=== PATIENT | female | born 1990 | race Caucasian/White ===

== ENCOUNTER 2017-12-28 07:04 | Day surgery (SDC) | payer OTHER, BC, SELFPAY ==
[2017-12-22 12:32] LABS: Hematocrit 37.3 % (37-47); Hemoglobin 12.2 g/dl (12.0-15.0); Mean Corp Hgb Conc 32.7 g/gl (32-36); Mean Corpuscular Hgb 28.4 pg (27.0-32.0); Mean Corpuscular Volume 86.7 fL (81-99); Mean Platelet Vol. 9.5 fl (6.2-12.0); Platelet Count 261 K/mm3 (150-450); RBC Distribution Width CV 13.1 % (11.6-14.6); RBC Distribution Width SD 41.7 fl (35.1-43.9); White Blood Count 5.1 K/mm3 (4.4-11.0)
[2017-12-22 12:37] LABS: International Normalized Ratio 1.1; Prothrombin Time (Protime)PT. 13.7 SECONDS (11.7-14.9)
[2017-12-22 12:38] LABS: Partial Thromboplast Time 31.5 Seconds (24.1-36.2)
[2017-12-22 12:39] LABS: Scan Indicated on CBC? Y/N NO
--- NOTE | 2017-12-28 | FALS_PTH ---
PATIENT: MATHEUS CAREY LOC: [facility] [place] U#:[id number] AGE/SX: 27/F ROOM: RE12/28/[address]: Dr. Bailey Hansen MD : 1990 BED: DIS: 12/28/2017 SPEC #: [id number] RECD: 12/28/17 12:23 STATUS: NEGAR KATHY #: [id number] ADONAY: 12/28/17 00:[address]: Bailey Mott DEPT: SURGICAL PATHOLOGY RECD BY: Rodney lFynn ENTERED: 12/28/17 12:23 SP TYPE: FALL TUBES OTHR DR: Dr. Chino Lo MD Tissues: Fallopian tube Procedures: Surgery Specimen Level II HEADER OPERATION: Laparoscopic salpingectomy, bilateral PRE-OP DIAGNOSIS: Sterilization request TISSUE SUBMITTED: Bilateral fallopian tubes, suture fiore right tube MICROSCOPIC DIAGNOSIS Right and left fallopian tubes, bilateral salpingectomies: Two complete segments of fallopian tubes with no pathologic change. AM:randell 12/29/17 MICROSCOPIC DESCRIPTION Slides are reviewed. GROSS DESCRIPTION Received is one container labeled with the patient's name and designated bilateral fallopian tubes, left tube with suture. The specimen consists of two fallopian tubes with an average length of 6 cm and has an average diameter of 0.5 cm. Both fallopian tubes have normal fimbriated ends. No mass lesions are identified. Machine Setter sections are submitted in two cassettes as follows: 1 ? right fallopian tube, 2 ? left fallopian tube. / AM:randell 12/28/17 TC:5 CPT: 54271 x2
[2017-12-28 07:24] LABS: Internal QC Validated? YES +Cl - CLEAR BKGD
[2017-12-28 07:25] LABS: Pregnancy, Urine Negative Negative
[2017-12-28 07:29] VITALS: BP 135/84; PULSE 103; RESP 16; TEMP 36.7; O2SAT 98; BMI 31.9
[2017-12-28] MEDS: Bupivacaine Mpf 0.5% 30 ML VIAL (09:29)
--- NOTE | 2017-12-28 09:39 | OP.PCM_ITS ---
Problem List (1) Encounter for sterilization Status: Acute Report of Operation Date of Procedure: 12/28/17 Pre-Operative Diagnosis: Sterilization request Post-Operative Diagnosis: Sterilization request Surgery/Procedure Performed:: Laparoscopic bilateral salpingectomy Description of Surgical Findings:: Peritoneal depression in culdesac inferior to uterosacral ligament suspicious for endometriosis cinema operator: Homero Odom Type of Anesthesia:: General Anesthesiologist: Malcolm Greer Specimen's removed: bilateral tubes - suture on right Estimated Blood Loss (mL): 10 Fluids Replaced: 1000 mL Description of Procedure: Indications Ms. Veras is a 27-year-old 1 para 1001 desiring permanent sterilization due to intolerance to hormonal contraception. She was counseled regarding various management options including reversible and irreversible contraception. Following discussion she opted to proceed with laparoscopic bilateral salpingectomy. Risks, benefits, indications of procedure were reviewed at length. Procedure: The patient was brought to the operating room and signed and was performed. She is placed in the dorsal supine position and induced under general anesthesia and intubated. She is then placed into dorsal lithotomy and examination under anesthesia was performed. The perineum and abdomen were prepped and draped in sterile fashion. Straight catheterization of the bladder was performed. The patient was placed on high lithotomy and weighted speculum placed into the vagina and cervix visualized and grasped the anterior cervical lip using a single-tooth tenaculum. The uterus sounded to 7 cm and a Conn cannula was placed and secured to the tenaculum for uterine manipulation. The speculum was removed from the vagina and patient placed into low lithotomy. Attention was then turned to the abdomen. An inferior umbilical incision was made using a scalpel. Veress needle was placed with successful hanging drop test and no aspirate. The abdomen was insufflated to 50 mmHg. The Veress needle was removed and a 5 mm port was placed under laparoscopic guidance at the site. The patient was then repositioned into Trendelenburg. Right and left lower quadrant incisions and 5mm ports were placed following transillumination. The abdomen was inspected and normal-appearing apart from a cul-de-sac lesion suspicious for prior endometriosis. The tubes and ovaries were normal-appearing. There is minimal scarring from prior section in the anterior pelvis. The left tube was identified to the fimbria. The mesosalpinx was grasped, coagulated and transected to the level of the uterine cornua with salpingectomy performed. In similar fashion this was performed on the right. Tubes were removed via the ports. The abdomen was insufflated and there is excellent hemostasis. The ports were removed from the abdomen. The incision sites were closed using 4-0 Monocryl and covered with Steri-Strips and OpSite dressing. Attention was then turned to the vagina. The speculum was replaced and the tenaculum was removed from the cervix along with the uterine manipulator. The tenaculum site was not hemostatic however eating resolved with 5 minutes compression. Sponge, instrument and needle counts were correct ? 2. Patient tolerated the procedure well. Was awakened, extubated and transferred to the recovery room. - Complications None - Admit VTE Documentation VTE Present on Admission: No VTE Mechan Device Prophylaxis: SCD's VTE Pharm Prophylaxis ordered?: No
[2017-12-28 09:43] VITALS: BP 135/84; BP 139/85; PULSE 97; RESP 14; TEMP 36.4; O2SAT 97
[2017-12-28 09:45] VITALS: BP 113/77; BP 135/84; PULSE 84; RESP 16; O2SAT 98
[2017-12-28 10:00] VITALS: BP 110/74; BP 135/84; PULSE 68; RESP 16; O2SAT 97
--- NOTE | 2017-12-28 10:05 | DCINST_ITS ---
- Discharge Diagnoses Current Active Problems: Current Active and Chronic Problems Encounter for sterilization (Acute) Reason(s) for Visit for Discharge Instructions: Laparoscopic bilateral salpingectomy (both tube removal) You will use the following diet at home:: No restrictions Your food should be the consistency of: Regular Discharge Activity: Return to Normal Activity, May Shower, - - No tub bath for 1 -2 weeks May resume sexual activity in: 4 weeks Lifting Restrictions: 10 lb Call your doctor if your incision/area has: Continuous Slow Oozing, Sudden Increased Bleeding, Increased Pain/ Swelling, Increased Redness Call your doctor if you observe: Fever of 101 or Higher, Inability to urinate, Inability to have a bowel movement, Using more than one pad per hour, Shortness of breath, Chest pain, Calf discomfort, Uncontrolled pain Suture Line Care: Avoid Pulling/Pushing Remove Dressing in (days):: 1 - Remove steristips in 3-5 days Cleanse incision/area with: Soap & Water Allergies/Adverse Reactions: Allergies amoxicillin Allergy (Verified 12/25/17 09:48) GI UPSET azithromycin Allergy (Verified 12/25/17 09:48) Anaphylaxis Penicillins Allergy (Verified 12/25/17 09:48) Anaphylaxis Medications to take at Discharge Docusate Sodium [Colace] 100 mg PO BID PRN PRN #60 cap 12/28/17 Ibuprofen 600 mg PO TID PRN #30 tab 12/28/17 Oxycodone [Oxyir] 1 - 2 tab PO Q4H PRN PRN 3 Days #28 tablet 12/28/17 The following prescriptions were given: Oxycodone [Oxyir] 1 - 2 tab PO Q4H PRN PRN 3 Days #28 tablet PRN Reason: Severe Pain () Docusate Sodium [Colace] 100 mg PO BID PRN PRN #60 cap PRN Reason: Constipation Ibuprofen 600 mg PO TID PRN #30 tab PRN Reason: Pain Primary Care Physician: Chino Lo MD [Primary Care Provider] - Please Follow Up With: Bailey Madrigal MD When: 2-4 weeks
[2017-12-28 10:12] VITALS: BP 118/73; BP 135/84; PULSE 73; RESP 16; TEMP 36.1; O2SAT 98
[2017-12-28 11:46] VITALS: BP 115/72; BP 135/84; PULSE 75; RESP 18; TEMP 36.4; O2SAT 99
== END 2017-12-28 11:50 | disposition home or self-care (01) ==
LOC: SDC 07:05 → AC 07:05
PROVIDERS: Family Provider Family Medicine; PCP Family Medicine; Visit Provider Obstetrics & Gynecology
PROC: (CPT 58661; principal; 2017-12-28 08:30)
DX: Z30.2 Encounter for sterilization (principal)
CPT/HCPCS: 58661; 36415; 81025; 85027; 85610; 85730; 86850; 86900; 88302; J7120; C1760; J2405

== ENCOUNTER → 2018-03-16 16:23 | Outpatient (CLI) | payer OTHER, BC, SELFPAY | PROVIDERS: Visit Provider Obstetrics & Gynecology | DX: Z12.4 Encounter for screening for malignant neoplasm of cervix (principal) | CPT/HCPCS: 88175; G0145 ==

== ENCOUNTER → 2018-10-12 15:21 | Outpatient (CLI) | payer OTHER, BC, SELFPAY ==
[2018-09-13 15:46] VITALS: BMI 31.9
== END ==
PROVIDERS: Visit Provider Obstetrics & Gynecology
DX: N39.0 Urinary tract infection, site not specified (principal)
CPT/HCPCS: 87086; 87088; 87186

== ENCOUNTER → 2019-05-07 08:59 | Outpatient (CLI) | payer OTHER, BC, SELFPAY ==
[2018-09-13 15:46] VITALS: BMI 31.9
--- NOTE | 2019-05-07 09:30 | RAD_ITS ---
STUDY: X-RAY CHEST REASON FOR EXAM: Female, 28 years old. Cough and shortness of breath TECHNIQUE: PA and lateral COMPARISON: None. FINDINGS: There appears to be mild bilateral interstitial thickening primarily in the lower lobes. There is no focal lobar infiltration.. There is no demonstrated pleural abnormality. Normal size heart. Normal mediastinum and lisset. Normal visualized pulmonary arteries. Normal visualized aortic arch and descending thoracic aorta. Normal visualized thoracic spine. Normal visualized ribs, clavicles, and shoulders. There is no demonstrated abnormality of the visualized soft tissue structures of the upper abdomen. RAD/Chest PA and Lateral IMPRESSION: Mild nonspecific interstitial thickening in the lower lobes. No focal infiltrates Electronically Signed: Twin Hurtado MD at 21:26 EDT , Service support ,
== END ==
PROVIDERS: Referring Provider Family Medicine; Visit Provider Family Medicine
DX: R05 Cough (principal)
CPT/HCPCS: 71046

== ENCOUNTER → 2019-06-04 07:06 | Outpatient (CLI) | payer OTHER, BC, SELFPAY ==
[2018-09-13 15:46] VITALS: BMI 31.9
--- NOTE | 2019-06-04 07:10 | RAD_ITS ---
STUDY: X-RAY CHEST REASON FOR EXAM: Female, 28 years old. Shortness of breath. Evaluate for pneumonia. TECHNIQUE: Frontal and lateral views of the chest. COMPARISON: May 07, 2019 FINDINGS: The lungs are clear and expanded. There is no demonstrated pleural abnormality. Normal size heart. Normal mediastinum and lisset. Normal visualized pulmonary arteries. Normal visualized aortic arch and descending thoracic aorta. Normal visualized thoracic spine. Normal visualized ribs, clavicles, and shoulders. There is no demonstrated abnormality of the visualized soft tissue structures of the upper abdomen. RAD/Chest PA and Lateral IMPRESSION: No interval change and no acute finding. Electronically Signed: Nura Durbin MD at 16:52 EDT , Service support ,
== END ==
PROVIDERS: Family Provider Family Medicine; PCP Family Medicine; Referring Provider Family Medicine; Visit Provider Family Medicine
DX: J18.9 Pneumonia, unspecified organism (principal)
CPT/HCPCS: 71046

== ENCOUNTER → 2021-02-15 09:57 | Outpatient (CLI) | payer OTHER, SELFPAY ==
[2019-07-19 06:29] VITALS: BMI 31.9
[2021-02-18 14:38] LABS: HPV APTIMA, High Risk Negative (Negative)
== END ==
PROVIDERS: PCP Family Medicine; Visit Provider Obstetrics & Gynecology
DX: Z12.4 Encounter for screening for malignant neoplasm of cervix (principal)
CPT/HCPCS: 87624; 88175; G0145

== ENCOUNTER 2021-10-27 12:16 | Outpatient (CLI) | payer OTHER, BC, SELFPAY ==
--- NOTE | 2021-10-27 12:26 | BI_ITS ---
MAMMOGRAPHY - BILATERAL DIAGNOSTIC REASON FOR EXAM: Female, 31 years old. History of left breast lump in the inferior central portion of the breast. PERTINENT HISTORY: Non-contributory. TECHNIQUE: Digital bilateral breast solis (3D mammographic acquisition) in the CC and MLO projections. 2-D mediolateral oblique (MLO) and craniocaudad (CC) views of both breasts were obtained. CAD: Full Field Digital Mammography with Computer Added Detection was performed. COMPARISON: None. Baseline examination. FINDINGS: Breast Composition: The breasts are extremely dense, which lowers the sensitivity of mammography. There are no dominant masses or suspicious calcifications. No other significant abnormalities are identified. BI/DIAG MAMM W/CAD, BILAT IMPRESSION: Negative diagnostic mammogram. With the patient''s history of a palpable lump in the left breast, correlation with ultrasound is recommended. ASSESSMENT CATEGORY: BIRADS Category 0: Incomplete. Need additional imaging evaluation. A letter regarding these results will be sent to the patient by the facility within 30 days. Approximately 10% of breast cancers are not detected by mammography. A normal mammogram should not delay biopsy of a clinically suspicious abnormality. Electronically Signed: Baudilio Snyder MD at 13:33 EST ,
--- NOTE | 2021-10-27 12:27 | US_ITS ---
STUDY: ULTRASOUND BREAST - LEFT REASON FOR EXAM: Female, 31 years old. Palpable lump left breast. TECHNIQUE: Axial and longitudinal images of the LEFT breast were performed with a high resolution ultrasound transducer. # OF IMAGES: 20 COMPARISON: Comparison is made with prior mammogram dated earlier today. FINDINGS: LEFT Breast: The lower half of the left breast was examined by ultrasound. There is dense fibroglandular tissue. No sonographic abnormality is seen. US/Breast Limited Unilateral IMPRESSION: No sonographic abnormality is seen. ASSESSMENT CATEGORY: BIRADS Category 1: Negative. A letter regarding these results will be sent to the patient by the facility within 30 days. Electronically Signed: Baudilio Snyder MD at 14:15 EST ,
== END 2021-10-27 23:59 | disposition home or self-care (01) ==
PROVIDERS: PCP Family Medicine; Visit Provider Obstetrics & Gynecology
DX: N63.20 Unspecified lump in the left breast, unspecified quadrant (principal)
CPT/HCPCS: 76642; 77062; 77066; G0279

== ENCOUNTER → 2022-04-28 | Outpatient (CLI) | payer OTHER, BC, SELFPAY ==
[2022-04-28 12:28] LABS: Absolute Lymphocyte Count 1.88 X10^3/uL (0.83-4.51); Absolute Neutrophil Count 5.4 X10^3/uL (2.0-7.7); Basophil# 0.03 X10^3/uL; Basophil% 0.4 % (0-1); Eosinophil# 0.11 X10^3/uL; Eosinophils% 1.4 % (0-5); Hematocrit 39.3 % (37-47); Hemoglobin 13.2 g/dL (12.0-15.0); Lymphocyte # 1.88 X10^3/ul (0.83-4.51); Lymphocyte % 23.2 % (19-41); Mean Corp Hgb Conc 33.6 g/dL (32-36); Mean Corpuscular Hgb 29.5 pg (27.0-32.0); Mean Corpuscular Volume 87.9 fL (81-99); Mean Platelet Vol. 9.3 fl (6.2-12.0); Monocyte# 0.66 X10^3/uL; Monocyte% 8.1 % (0-10); NRBC Flagged by Analyzer 0 % (0-5); Neutrophil # 5.42 X10^3/uL (2.7-7.7); Neutrophil % 66.7 % (47-70); Platelet Count 345 K/mm3 (150-450); RBC Distribution Width CV 12.8 % (11.6-14.6); RBC Distribution Width SD 41.2 fl (35.1-43.9); Red Blood Count 4.47 M/mm3 (4.2-5.4); White Blood Count 8.1 K/mm3 (4.4-11.0)
[2022-04-28 13:06] LABS: Thyroid Stim Hormone (TSH) 2.45 uIU/mL (0.358-3.74)
== END | disposition home or self-care (01) ==
LOC: LAB 11:53
PROVIDERS: PCP Family Medicine
DX: N93.9 Abnormal uterine and vaginal bleeding, unspecified (principal)
CPT/HCPCS: 36415; 84443; 85025

== ENCOUNTER 2022-05-11 07:14 | Emergency (ER) | payer OTHER, BC, SELFPAY ==
[2022-05-11 07:15] VITALS: BP 151/77; PULSE 124; RESP 18; TEMP 36.2; O2SAT 97; BMI 36.3
--- NOTE | 2022-05-11 07:30 | EDS_ITS ---
HPI History of Present Illness Chief Complaint: Allergic Reaction Detail of Chief Complaint: Rash started yesterday. Informant: patient Onset/Context/Timing Onset: Today and Yesterday Timing: Continuous Current Severity: Moderate Maximum Severity: Moderate Narrative Narrative: 31-year-old female history of endometriosis. Currently on no medications other than she occasionally takes ibuprofen. States she developed a rash along her scalp and hair yesterday. Is progressively red and she has a whole body red rash. Denies any lip or tongue swelling. No trouble breathing. Otherwise she has not felt ill. It does itch. No new medications. She has tried a recent new skin cream. She has had reactions like this before. Prior similar symptoms: Yes Recent Illness/Hospitalization: No PFSH PFSH no medical history Home Medications ibuprofen 600 mg tablet 600 mg PO TID PRN Pain #30 tabs 12/28/17 [Rx Last Taken Unknown] prednisone 20 mg tablet 40 mg PO DAILY 7 days #14 tabs 05/11/22 [Rx Last Taken Unknown] Allergy/AdvReac Type Severity Reaction Status Date / Time amoxicillin Allergy GI UPSET Verified 05/11/22 07:15 azithromycin Allergy Anaphylaxis Verified 05/11/22 07:15 Penicillins Allergy Anaphylaxis Verified 05/11/22 07:15 no significant family history Surgical History History of bilateral fallopian tube excision History of Social History (Updated 07/19/19 @ 07:04 by CHILANGO Hernandez) Smoking Status: Never smoker alcohol intake: never ROS ROS ED ROS Narrative Rash. Review of Systems ROS Unobtainable: Denies due to encephalopathy Constitutional Constitutional ED: Denies chills or fever(s) Eyes Eyes: Denies blurry vision ENT ENT ED: Denies ear pain Cardiovascular Cardiovascular: Denies chest pain Respiratory/Chest Respiratory/Chest: Denies cough or dyspnea Gastrointestinal Gastrointestinal: Denies abdominal pain Genitourinary Genitourinary ED: Denies dysuria or hematuria Musculoskeletal Musculoskeletal: Denies arthralgias Integumentary Reports rash; Denies abscess or Abrasions Neurologic Neurologic: Denies headache(s) Psychiatric Psychiatric: Denies anxiety or depression Endocrine Endocrinology: Denies cold intolerance Hematologic/Lymphatic Hematologic/Lymphatic: Reports none Allergic/Immunologic Allergic/Immunologic ED: Denies mouth swelling or tongue swelling EXAM Physical Exam Narrative Exam Narrative: 31-year-old female no acute distress. Vital signs stable afebrile. H EENT exam unremarkable. No swelling of lips and tongue. Lungs clear to auscultation. No wheezing. Heart regular rhythm no murmur. Abdomen soft nontender. Moving all 4 extremities. Calves are nontender without edema. Back unremarkable except for her skin basically chest abdomen back arms and legs scalp she has a rash red and raised consistent with hives and allergic reaction. No petechiae or purpura. No pustules or vesicles. This is consistent with allergic reaction. Const Vital Signs: 05/11/22 07:15 Temperature 97.2 F L Temperature Source Temporal Pulse Rate 124 H Respiratory Rate 18 Blood Pressure 151/77 H Blood Pressure Mean 101 Pulse Ox 97 Oxygen Delivery Method Room Air Positive well nourished and well developed; Negative for cachectic, contractures or unkempt General Appearance ED: well developed and NAD; Negative for unkempt, cachectic, contractures, cyanotic or diaphoretic Nutritional Appearance: Negative for cachectic HEENT Reports moist mucous membranes Negative for trauma Eyes PERRL and EOMs intact bilaterally General Eye ED: Negative for pale conjunctiva or scleral icterus Neck no lymphadenopathy, supple and no JVD Chest Wall inspection of chest normal and palpation of chest normal Chest: Negative for other Resp normal respiratory effort and clear to auscultation bilaterally Effort and Inspection: Negative for retractions Auscultation: Negative for rales, rhonchi or wheezes Cardio regular rate, regular rhythm, S1 normal heart sound, S2 normal heart sound and no murmurs GI normal to inspection, nondistended, normoactive bowel sounds, non-tender, non- distended and no masses Inspection: Negative for abdominal distention Auscultation: normoactive bowel sounds Palpation: soft; Negative for tender Back/Spine no CVA tenderness General Back: Negative for CVA tenderness Cervical Spine: Negative for cervical spine tenderness Thoracic Spine / Upper Back: Negative for thoracic spinal tenderness Lumbar Spine / Lower Back: Negative for lumbar spinal tenderness Extremity normal to inspection General Extremety ED: Negative for edema or tenderness General Extremity: Negative for edema Neuro oriented x3 Sensorium / Orientation: alert; Negative for orientation impaired, lethargic or stuporous Motor Exam: strength 5/5 throughout; Negative for general weakness or strength abnormal Psych mental status grossly normal Appearance: Negative for unkempt Attitude: No agitated Mood & Affect: Negative for depressed or anxious Skin No no rashes or lesions noted and no wounds Rashes: rashes noted Trauma: Negative for abrasion Wounds: Negative for wounds noted MDM MDM MDM Narrative Medical decision making narrative: Generalized allergic reaction with rash. She will be treated with 60 mg of prednisone here and placed on 40 mg prednisone a day until the rash resolves. Discharge Plan Triage Chief Complaint: Allergic Reaction ED Provider: [facility] Dx/Rx/DC Orders Clinical Impression: Rash, Allergic reaction Instructions: ED General Allergic Reactions Prescriptions: New prednisone 20 mg tablet 40 mg PO DAILY 7 Days Qty: 14 0RF No Action ibuprofen 600 MG tablet 600 mg PO TID PRN (Reason: Pain) Qty: 30 0RF Primary Care Provider: Chino Lo Referrals: Chino Lo MD [Primary Care Provider] - 3-5 Days if not improving Activity Restrictions/Additional Instructions: Prednisone 40 mg a day starting tomorrow for the next 7 days. The rash and allergic reaction may resolve prior to that and you can stop the prednisone at that time. Return if a lot worse. This may get a little worse before it starts resolving. Disposition Disposition: Home, Self Care
[2022-05-11] MEDS: predniSONE 20 MG Tablet 60 MG PO (07:37)
== END 2022-05-11 07:42 | disposition home or self-care (01) ==
LOC: ED 07:37
PROVIDERS: Emergency Provider Emergency Medicine; PCP Family Medicine; Visit Provider Emergency Medicine
DX: T78.40XA Allergy, unspecified, initial encounter (principal); R21 Rash and other nonspecific skin eruption
CPT/HCPCS: 99283

== ENCOUNTER → 2023-01-31 | Outpatient (CLI) | payer OTHER, SELFPAY ==
[2023-02-02 15:08] LABS: PROEL- A/G Ratio 0.9 (0.7-1.7); PROEL- Albumin 3.8 g/dL (2.9-4.4); PROEL- Alpha-1 Globulin 0.2 g/dL (0.0-0.4); PROEL- Alpha-2 Globulin 0.8 g/dL (0.4-1.0); PROEL- Beta Globulin 1.2 g/dL (0.7-1.3); PROEL- Gamma Globulin 1.9 g/dL (0.4-1.8); PROEL- Globulin, Total 4.2 g/dL (2.2-3.9)
== END | disposition home or self-care (01) ==
LOC: LAB 16:28
PROVIDERS: PCP Family Medicine; Referring Provider Family Medicine; Visit Provider Family Medicine
DX: R77.1 Abnormality of globulin (principal)
CPT/HCPCS: 36415; 84165

== ENCOUNTER → 2023-05-16 | Outpatient (CLI) | payer OTHER, SELFPAY ==
[2023-05-16 17:15] LABS: ALB/GLOB Ratio 0.9 RATIO (0.9-2.4); AST(SGOT) 17 U/L (15-37); Alanine Aminotransfer ALT/SGPT 29 U/L (13-56); Alkaline Phosphatase 109 U/L (45-117); Anion Gap 3 (5-15); BUN 13 mg/dL (7-18); BUN/Creat Ratio 13.7 RATIO (10-20); Calcium,Total 8.8 mg/dL (8.5-10.1); Chloride 111 mmol/L (98-107); Creatinine, Serum 0.95 mg/dL (0.55-1.02); EST Glomerular Filtration Rate 72 mL/min (>60); Est Glom Filt Rate - Afr Amer 87 mL/min (>60); Globulin 4.5 g/dL (2.2-4.2); Glucose 110 mg/dL (74-106); LDH 189 U/L (84-246); Potassium 3.6 mmol/L (3.5-5.1); Protein, Total 8.5 g/dL (6.4-8.2); Sodium Level 139 mmol/L (136-145)
== END | disposition home or self-care (01) ==
LOC: LAB 16:30
PROVIDERS: PCP Family Medicine; Referring Provider Family Medicine; Visit Provider Family Medicine
DX: D89.2 Hypergammaglobulinemia, unspecified (principal)
CPT/HCPCS: 36415; 80053; 83615

== ENCOUNTER → 2023-11-14 | Outpatient (CLI) | payer OTHER, SELFPAY ==
[2023-11-19 22:06] LABS: Calprotectin, Stool 9 ug/g (0-120)
[2023-11-21 00:06] LABS: Giardia Lamblia, Stool EIA Negative (Negative); H. PYLORI STOOL AG Negative (Negative); Pancreatic Elastase, Fecal > 500 (>200)
== END | disposition home or self-care (01) ==
PROVIDERS: PCP Family Medicine; Referring Provider Internal Medicine; Visit Provider Internal Medicine
DX: D47.2 Monoclonal gammopathy (principal); R19.7 Diarrhea, unspecified
CPT/HCPCS: 82653; 83993; 87329; 87338; 87506

== ENCOUNTER → 2024-01-11 | Outpatient (CLI) | payer OTHER, SELFPAY ==
[2024-01-11 22:10] LABS: Xtra Tube EP Lab EXTRA TUBE
[2024-01-17 15:08] LABS: Immunoglobulin E 54 IU/mL (6-495)
== END | disposition home or self-care (01) ==
LOC: PAVLAB 13:52
PROVIDERS: PCP Family Medicine; Referring Provider Internal Medicine; Visit Provider Internal Medicine
DX: R19.7 Diarrhea, unspecified (principal)
CPT/HCPCS: 36415; 82785